=== PATIENT | male | born 1950 | race Caucasian/White ===

== ENCOUNTER 2020-07-01 16:05 | Emergency (ER) | payer OTHER ==
[2020-07-01 16:11] VITALS: Ht 175.3 cm
[2020-07-01] MEDS ORDERED: VIBRAMYCIN 100100 MG (16:12)
[2020-07-01] MEDS ORDERED: ELIQUIS5 MG (16:12)
[2020-07-01] MEDS ORDERED: LIPITOR80 MG (16:12)
[2020-07-01] MEDS ORDERED: OPTIVE SENSITI1 EACH (16:12)
[2020-07-01] MEDS ORDERED: NEURONTIN 300300 MG (16:13)
[2020-07-01] MEDS ORDERED: PROTONIX40 MG (16:13)
[2020-07-01] MEDS ORDERED: PLENDIL5 MG (16:13)
[2020-07-01] MEDS ORDERED: BAYER CHEWABLE81 MG (16:13)
[2020-07-01] MEDS ORDERED: LOPRESSOR25 MG (16:13)
[2020-07-01] MEDS ORDERED: LASIX40 MG (16:13)
[2020-07-01] MEDS ORDERED: ISOSORBIDE MONO30 M1 (16:13)
[2020-07-01 18:16] LABS: BASOPHILS 0.3 % (0-2); EOSINOPHILS 3.1 % (0-7); HEMATOCRIT 40.7 % (42.0-54.0); HEMOGLOBIN 13.6 g/dL (13.5-17.5); IMMATURE GRANULOCYTES 0.2 % (0-5); LYMPHOCYTES 25.2 % (15-50); MCH 29.3 pg (26.0-34.0); MCHC 33.4 g/dL (31.0-37.0); MCV 87.7 fL (80.0-100.0); MEAN PLATELET VOLUME 9.8 fL (7.4-10.4); NEUTROPHILS 59.2 % (40-80); PLATELET COUNT 267 10x3/uL (130-400); RBC 4.64 10x6/uL (4.20-6.10); RDW 13.8 % (11.5-14.5); WBC 9.6 10x3/uL (4.8-10.8)
[2020-07-01 18:27] LABS: APTT 32.6 SECONDS (22.8-39.4); INR 1.12 (0.85-1.17); PROTIME 14.4 SECONDS (11.6-15.0)
[2020-07-01 18:29] LABS: ANION GAP 10.7 mmol/L (8-16); CALCIUM 8.8 mg/dL (8.5-10.1); CARBON DIOXIDE 26.1 mmol/L (21.0-32.0); CREATININE - SERUM 1.7 mg/dL (0.6-1.3); POTASSIUM - SERUM 3.8 mmol/L (3.5-5.1)
[2020-07-01 18:43] LABS: ALBUMIN 3.8 g/dL (3.4-5.0); BILIRUBIN - TOTAL 0.39 mg/dL (0.2-1.3); PROTEIN - SERUM 8.3 g/dL (6.4-8.2)
[2020-07-01 20:20] VITALS: BP 162/74
== END 2020-07-01 20:20 | disposition other institution (70) ==
LOC: D.ER 16:05
PROVIDERS: Family Medicine
DX: S61.442A Puncture wound with foreign body of left hand, initial encounter (principal); W22.8XXA Striking against or struck by other objects, initial encounter; Y93.9 Activity, unspecified; Y92.9 Unspecified place or not applicable; I10 Essential (primary) hypertension; Z95.1 Presence of aortocoronary bypass graft

== ENCOUNTER 2020-12-11 20:37 | Inpatient (IN) | payer OTHER ==
[~2020-12-11] VITALS: Ht 175.3 cm; Wt 113.6 kg
[~2020-12-11 20:37] MED LIST: BAYER CHEWABLE81 MG; ELIQUIS5 MG; ISOSORBIDE MONO30 M1 PO; LASIX40 MG; LIPITOR80 MG PO; LOPRESSOR25 MG PO; NEURONTIN 300300 MG PO; OPTIVE SENSITI1 EACH OP; PACERONE100 MG PO; PLENDIL5 MG; PROCARDIA XL60 MG PO; PROTONIX40 MG PO; VIBRAMYCIN 100100 MG
[2020-12-11 21:03] LABS: CALCIUM 8.3 mg/dL (8.5-10.1); CREATININE - SERUM 1.3 mg/dL (0.6-1.3); INR 1.13 (0.85-1.17); PROTIME 13.4 SECONDS (11.6-15.0)
[2020-12-11 21:10] VITALS: BP 167/84
[2020-12-11 21:24] LABS: ALBUMIN 3.3 g/dL (3.4-5.0); BASOPHILS 0.2 % (0-2); BILIRUBIN - TOTAL 0.44 mg/dL (0.2-1.3); C-REACTIVE PROTEIN 2.2 mg/dL (0.0-0.9); EOSINOPHILS 1.2 % (0-7); HEMATOCRIT 41.3 % (42.0-54.0); HEMOGLOBIN 13.4 g/dL (13.5-17.5); IMMATURE GRANULOCYTES 0.2 % (0-5); LYMPHOCYTE ABS# 1.64 10x3/uL (1.32-3.57); LYMPHOCYTES 13.3 % (15-50); MAGNESIUM - SERUM 1.8 mg/dL (1.8-2.4); MCH 28.2 pg (26.0-34.0); MCHC 32.4 g/dL (31.0-37.0); MCV 86.8 fL (80.0-100.0); MEAN PLATELET VOLUME 9.8 fL (7.4-10.4); MONOCYTES 11.2 % (2-11); NEUTROPHIL ABS# 9.07 10x3/uL (1.78-5.38); NEUTROPHILS 73.9 % (40-80); PLATELET COUNT 279 10x3/uL (130-400); PROTEIN - SERUM 7.8 g/dL (6.4-8.2); RBC 4.76 10x6/uL (4.20-6.10); WBC 12.3 10x3/uL (4.8-10.8)
[2020-12-11 21:41] LABS: TROPONIN-I 4.989 ng/mL (0.000-0.060)
[2020-12-11 22:24] VITALS: BP 142/80
[2020-12-11 23:58] VITALS: BP 149/68
[2020-12-12] VITALS (9 sets, daily range): BP systolic 116–151; BP diastolic 59–76
--- NOTE | 2020-12-12 12:10 | NUR ---
PATIENT UP AMBULATORY IN ROOM.
[2020-12-12 19:00] LABS: BILIRUBIN NEGATIVE (NEGATIVE); KETONE NEGATIVE (NEGATIVE); NITRITE NEGATIVE (NEGATIVE); UROBILINOGEN NORMAL mg/dL (< 2); WHITE CELLS - URINE 0-5 HPF (0-1)
[2020-12-12 19:01] LABS: BACTERIA FEW HPF (NONE SEEN)
[2020-12-13] VITALS (11 sets, daily range): BP systolic 148–190; BP diastolic 66–89; Ht 175.3 cm; Wt 113.6 kg
--- NOTE | 2020-12-13 07:34 | NUR ---
ALERT/ORIENTED X 3 SITTING ON SIDE OF BED. B/P 156/68 HR 93 O2 SATS 97% IV L AC 18GAUGE NO COMPLAINTS
--- NOTE | 2020-12-13 22:10 | NUR ---
PT FROM ER VIA WHEELCHAIR, PT AMBULATED TO BED, RESP EVEN AND UNLABORED, NO DISTRESS NOTED, CL IN REACH, SR UP X 2.
[2020-12-13] MEDS ORDERED: LASIX40 MG PO (22:30)
[2020-12-14 05:26] VITALS: BP 155/62
[2020-12-14 05:33] LABS: BASOPHILS 0.1 % (0-2); EOSINOPHILS 1.9 % (0-7); HEMATOCRIT 33.5 % (42.0-54.0); IMMATURE GRANULOCYTES 0.2 % (0-5); LYMPHOCYTE ABS# 1.39 10x3/uL (1.32-3.57); LYMPHOCYTES 14.2 % (15-50); MCH 28.3 pg (26.0-34.0); MCHC 32.8 g/dL (31.0-37.0); MCV 86.1 fL (80.0-100.0); MEAN PLATELET VOLUME 9.7 fL (7.4-10.4); MONOCYTES 13.3 % (2-11); NEUTROPHILS 70.3 % (40-80); RBC 3.89 10x6/uL (4.20-6.10); RDW 14.1 % (11.5-14.5); WBC 9.8 10x3/uL (4.8-10.8)
[2020-12-14 06:00] LABS: ALBUMIN 2.7 g/dL (3.4-5.0); ANION GAP 11.3 mmol/L (8-16); BILIRUBIN - TOTAL 0.44 mg/dL (0.2-1.3); CALCIUM 8.2 mg/dL (8.5-10.1); CREATININE - SERUM 1.3 mg/dL (0.6-1.3); POTASSIUM - SERUM 3.3 mmol/L (3.5-5.1); PROTEIN - SERUM 6.9 g/dL (6.4-8.2)
[2020-12-14 06:10] LABS: PLATELET COUNT 223 10x3/uL (130-400)
--- NOTE | 2020-12-14 07:30 | NUR ---
SITTING ON SIDE OF BED, AWAKE/ALERT/ORIENTED, T/R SELF AD FACUNDO, CONT OF B/B WITH BRPs PER SELF AD FACUNDO, DENIES PAIN/OTHER DISCOMFORT AT THIS TIME, CALL LIGHT/PHONE/WATER WITHIN REACH, NO S/S OF ACUTE DISTRESS OBSERVED.
[2020-12-14 07:54] VITALS: BP 126/76
--- NOTE | 2020-12-14 09:45 | NUR ---
COLLECTED SPECIMEN FOR COVID ANTIGEN TEST
--- NOTE | 2020-12-14 10:00 | NUR ---
COLLECTED SPECIMEN FOR COVID PCR TEST
--- NOTE | 2020-12-14 10:02 | NUR ---
TRANSFERRED TO ROOM 2106 WHILE AWAITING RESULTS OF COVID TESTS
[2020-12-14 10:20] LABS: SARS-CoV-2 ANTIGEN NEGATIVE- SARS-COV-2 (NEGATIVE)
[2020-12-14 12:00] VITALS: BP 126/70; BP 171/78
--- NOTE | 2020-12-14 20:00 | NUR ---
INITIAL ROUNDS AND ASSESSMENT COMPLETED. PT RESTING IN BED. ALERT/ORIENTED. SR PER TELEMETRY. NONLABORED RESPIRATIONS WITH O2 @ 6L/HFNC. IV TO LEFT A/C SALINE LOCKED. CALL LIGHT IN REACH.
[2020-12-14 20:30] VITALS: BP 176/72
[2020-12-14] MEDS ORDERED: PACERONE200 MG PO (20:50)
[2020-12-15 00:30] VITALS: BP 166/75
--- NOTE | 2020-12-15 04:33 | NUR ---
PT HAS RESTED THROUGH THE NIGHT. NO CHANGE FROM INITIAL SHIFT ASSESSMENT. SR PER TELEMETRY. NO REPORTS OF PAIN OR DISCOMFORT. PATENT IV TO LEFT A/C SALINE LOCKED. O2 @ 3L/NC WITH RT WORKING ON WEANING. CPOC. CALL LIGHT IN REACH.
[2020-12-15 05:28] VITALS: BP 138/67
[2020-12-15 06:50] LABS: BASOPHILS 0.4 % (0-2); EOSINOPHILS 4.1 % (0-7); HEMOGLOBIN 10.7 g/dL (13.5-17.5); IMMATURE GRANULOCYTES 0.1 % (0-5); LYMPHOCYTE ABS# 1.58 10x3/uL (1.32-3.57); LYMPHOCYTES 20.1 % (15-50); MCH 27.9 pg (26.0-34.0); MCHC 32.4 g/dL (31.0-37.0); MCV 85.9 fL (80.0-100.0); MEAN PLATELET VOLUME 9.6 fL (7.4-10.4); MONOCYTES 14.4 % (2-11); NEUTROPHIL ABS# 4.79 10x3/uL (1.78-5.38); NEUTROPHILS 60.9 % (40-80); PLATELET COUNT 249 10x3/uL (130-400); RBC 3.84 10x6/uL (4.20-6.10); RDW 14.1 % (11.5-14.5); WBC 7.9 10x3/uL (4.8-10.8)
[2020-12-15 07:00] VITALS: BP 134/67
[2020-12-15 08:18] LABS: ALBUMIN 2.7 g/dL (3.4-5.0); BILIRUBIN - TOTAL 0.41 mg/dL (0.2-1.3); CALCIUM 8.4 mg/dL (8.5-10.1); CARBON DIOXIDE 24.6 mmol/L (21.0-32.0); CREATININE - SERUM 1.2 mg/dL (0.6-1.3); PROTEIN - SERUM 6.2 g/dL (6.4-8.2)
[2020-12-15 08:28] LABS: ANION GAP 14.2 mmol/L (8-16); POTASSIUM - SERUM 3.8 mmol/L (3.5-5.1)
[2020-12-15 12:00] VITALS: BP 130/69
[2020-12-15 15:00] VITALS: BP 139/64
[2020-12-15 20:00] VITALS: BP 146/61
[2020-12-16] VITALS: BP 133/60
[2020-12-16 06:37] LABS: BASOPHILS 0.4 % (0-2); EOSINOPHILS 5.6 % (0-7); HEMATOCRIT 35.2 % (42.0-54.0); HEMOGLOBIN 11.6 g/dL (13.5-17.5); IMMATURE GRANULOCYTES 0.1 % (0-5); LYMPHOCYTE ABS# 1.69 10x3/uL (1.32-3.57); LYMPHOCYTES 23.2 % (15-50); MEAN PLATELET VOLUME 9.6 fL (7.4-10.4); MONOCYTES 17.9 % (2-11); NEUTROPHIL ABS# 3.83 10x3/uL (1.78-5.38); NEUTROPHILS 52.8 % (40-80); PLATELET COUNT 262 10x3/uL (130-400); RBC 4.14 10x6/uL (4.20-6.10); RDW 13.9 % (11.5-14.5); WBC 7.3 10x3/uL (4.8-10.8)
[2020-12-16 07:15] VITALS: BP 130/57
[2020-12-16 07:22] LABS: ALBUMIN 2.6 g/dL (3.4-5.0); ANION GAP 12.3 mmol/L (8-16); BILIRUBIN - TOTAL 0.37 mg/dL (0.2-1.3); CALCIUM 8.9 mg/dL (8.5-10.1); CARBON DIOXIDE 25.5 mmol/L (21.0-32.0); CREATININE - SERUM 1.2 mg/dL (0.6-1.3); MAGNESIUM - SERUM 2.2 mg/dL (1.8-2.4); POTASSIUM - SERUM 3.8 mmol/L (3.5-5.1); PROTEIN - SERUM 7.1 g/dL (6.4-8.2)
[2020-12-16 08:16] VITALS: BP 129/60
--- NOTE | 2020-12-16 10:37 | MORECARE ---
"CASE MANAGEMENT DISCHARGE SUMMARY PATIENT: LEESA MARTÍNEZ UNIT: [id number] ADM DATE: 12/12/20 AGE: 70 : 50 SEX: M ROOM/BED: D.2106 AUTHOR: CHER RODRIGUEZ PHYSICIAN: REFERRING PHYSICIAN: LEONIE COFFEY DO DATE OF SERVICE: 12/16/20 Discharge Plan Patient Name: LEESA MARTÍNEZ Facility: [facility]:[place] : 1950 Planned Disposition: Home Anticipated Discharge Date: 12/16/20 Discharge Date: Expected LOS: 4 Initial Reviewer: WILLIAMS Initial Review Date: 12/12/2020 Generated: 12/16/20 11:36 am Comments DCP- Discharge Planning Updated by WILLIAMS: Donovan Gray on 12/16/20 9:[address] CM met with patient to complete DC plan and to evaluate needs. Patient lives independently with his spouse, Janette Martínez ([phone]). At discharge, the patient plans to return home and feels this is a safe discharge. CM discussed availability of home health, rehab services, and medical equipment. Patient declined HHS, SNF, IPR, and DME. Patient voiced no other needs at this time and is satisfied with DC plan. Transportation provider at discharge will be with Janette. DC IMM delivered, explained, signed by the patient, and placed in chart. Signed form also left with the patient. CM will continue to follow and will assist as needed with dc plans/needs. DCPIA - Discharge Planning Initial Assessment Updated by WILLIAMS: Donovan Gray on 12/16/20 10:34 am * Is the patient Alert and Oriented? Yes * How many steps to enter\\exit or inside your home? 4/0 * [facility] * Preadmission Environment Home with Family * ADLs Independent * Equipment None * Other Equipment n/a * List name and contact numbers for known caregivers / representatives who currently or will assist patient after discharge: spouse, Janette Martínez ([phone]) * Verbal permission to speak to the caregivers and representatives has been obtained from the patient. Yes * Community resources currently utilized None * Please name any agencies selected above. n/a * Additional services required to return to the preadmission environment? No * Can the patient safely return to the preadmission environment? Yes * Has this patient been hospitalized within the prior 30 days at any hospital? No Coverage Notice Reviewer: [id number] Kayleigh Gray Notice Issued Date-Time: 12/16/2020 10:10 Notice Type: IM Discharge Notice Notice Delivered To: Patient Relationship to Patient: Self Receiving Operator Name: Delivery Method: HAND - Hand Delivered Daphne Days: Prior Verbal Notification: Recipient Understood Notice: Yes Recipient Signature: Yes Med Rec Note Co-signed by Attending: Coverage Notice Comment: DC IMM delivered, explained, signed by the patient, and placed in chart. Patient Name: LEESA MARTÍNEZ Page [phone] at 1037 All edits/amendments must be made on the electronic document DICTATION DATE: 12/16/20 1037 WARP KNITTING MACHINE OPERATOR: TENISHA 12/16/20 [facility] RPT#: [id number] DC DATE: STATUS: ADM IN [facility] [address] [place] [address] END OF REPORT"
--- NOTE | 2020-12-16 11:13 | NUR ---
PT AWAKE AND ORIETNED, SITTING UP ON STEWART OF BED EATING BREAFKAST. NO COMPLAINTS OR COCNERNS THIS AM. WOULD LIKE TO DISCHARGE, DISCHARGE ORDER ALREADY PLACED AND PAPERWORK COMPLETED, PT WILL BE HERE SHORLTY TO GET HIM. IV OUT TIP INTACT. TOOK ALL MEDICATIONS WITHOUT COMPLICATIONS. CL IRN EACH, SRX2,.
--- NOTE | 2020-12-16 11:32 | NUR ---
PT ESCORTED OUT VIA HWEELCHAIR TO POV, DRIVING.
--- NOTE | 2020-12-17 07:38 | MORECARE ---
"CASE MANAGEMENT DISCHARGE SUMMARY PATIENT: LEESA MARTÍNEZ UNIT: [id number] ADM DATE: 12/12/20 AGE: 70 : 50 SEX: M ROOM/BED: D.2106 AUTHOR: MICHAEL,DOC PHYSICIAN: REFERRING PHYSICIAN: LEONIE COFFEY DO DATE OF SERVICE: 12/17/20 Discharge Plan Patient Name: LEESA MARTÍNEZ Facility: [facility]:[place] : 1950 Planned Disposition: Home Anticipated Discharge Date: 12/16/20 Discharge Date: 12/16/2020 Expected LOS: 4 Initial Reviewer: WILLIAMS Initial Review Date: 12/12/2020 Generated: 12/17/20 8:37 am Comments DCP- Discharge Planning Updated by [id number]: Donovan Gray on 12/16/20 9:[address] CM met with patient to complete DC plan and to evaluate needs. Patient lives independently with his spouse, Janette Martínez ([phone]). At discharge, the patient plans to return home and feels this is a safe discharge. CM discussed availability of home health, rehab services, and medical equipment. Patient declined HHS, SNF, IPR, and DME. Patient voiced no other needs at this time and is satisfied with DC plan. Transportation provider at discharge will be with Janette. DC IMM delivered, explained, signed by the patient, and placed in chart. Signed form also left with the patient. CM will continue to follow and will assist as needed with dc plans/needs. DCPIA - Discharge Planning Initial Assessment Updated by [id number]: Donovan Gray on 12/16/20 10:34 am * Is the patient Alert and Oriented? Yes * How many steps to enter\\exit or inside your home? 4/0 * [facility] * [facility] * Preadmission Environment Home with Family * ADLs Independent * Equipment None * Other Equipment n/a * List name and contact numbers for known caregivers / representatives who currently or will assist patient after discharge: spouse, Janette Martínez ([phone]) * Verbal permission to speak to the caregivers and representatives has been obtained from the patient. Yes * Community resources currently utilized None * Please name any agencies selected above. n/a * Additional services required to return to the preadmission environment? No * Can the patient safely return to the preadmission environment? Yes * Has this patient been hospitalized within the prior 30 days at any hospital? No Coverage Notice Reviewer: [id number] Kayleigh BenavidesDonovanaishwarya Chaviranes Notice Issued Date-Time: 12/16/2020 10:10 Notice Type: IM Discharge Notice Notice Delivered To: Patient Relationship to Patient: Self Janitorial Assistant Name: Delivery Method: HAND - Hand Delivered Daphne Days: Prior Verbal Notification: Recipient Understood Notice: Yes Recipient Signature: Yes Med Rec Note Co-signed by Attending: Coverage Notice Comment: DC IMM delivered, explained, signed by the patient, and placed in chart. Last DP export: 12/16/20 9:37 a Patient Name: LEESA MARTÍNEZ Page [phone] at 0738 All edits/amendments must be made on the electronic document DICTATION DATE: 12/17/20736 GRANITE CUTTER: TENISHA 12/17/2037 RPT#: [id number] DC DATE:12/16/20 STATUS: DIS IN [facility] [address] [place] [address] END OF REPORT"
--- NOTE | 2020-12-17 08:49 | EC ---
PATIENT:LEESA DU DATE OF SERVICE: 12/12/20 SEX: M MEDICAL RECORD: [id number] DATE OF : [birth year] LOCATION:D.M2 D.210 AGE OF PATIENT: 70 ADMISSION DATE: 12/12/20 REFERRING PHYSICIAN: INTERPRETING PHYSICIAN: MARLYN TALLEY MD ECHOCARDIOGRAM REPORT ECHO CHARGES 4 ECHO COMPLETE Date: 12/12/20 CLINICAL DIAGNOSIS: R/O PERICARDIAL EFFUSION ECHOCARDIOGRAPHIC MEASUREMENTS (adult normal given) AC root (d.<3.7cm) 3.5 cm LV Septum d (<1.2 cm> 0.9 cm Valve Excursion 1.9 cm LV Septum (systole) 1.4 cm Left Atria (s.<4.0cm> 4.7 cm LVPW d(<1.2cm) 1.2 cm RV (d.<2.3cm) 3.1 cm LVPW (sytole) 1.6 cm LV diastole(<5.6CM) 5.9 cm MV E-F(>70mm/sec) cm LV systole 4.9 cm LVOT Diameter 2.0 cm MV exc.(>10mm) 2.1 cm Est.ejection fraction (50-75%) % DOPPLER: LVIT cm/sec A 48 cm/sec E 79 cm/sec LA cm/sec RVSP 22 mmHg LVOT 79 cm/sec AOP1/2T m/s Asc. Ao 112 cm/sec RVOT 82 cm/sec RA 109 cm/sec PA cm/sec AV Gradient Peak 5.0 mmHg AV Mean 2.8 mmHg AV Area 1.8 cm MV Gradient Peak 3.7 mmHg MV Mean 1.6 mmHg MV Area cm COMMENTS: Line Department Supervisor: Lucrecia GRAF Creative Services Writer: 3 Dr. Jones TAPE# Pericardial Effusion N DATE OF SERVICE: Adequate 2D, color flow imaging, spectral Doppler, and M-Mode. No LVH. LV internal dimensions are normal. Wall motion normal. EF greater than or equal to 55%. Aortic valve is tricuspid. No evidence of stenosis by Doppler interrogation. Left atrium is dilated at 4.7 cm. Mitral valve shows no prolapse. Trace MR. Right-sided chambers are grossly normal. Trace TR. No evidence of pericardial effusion is noted. ECHOCARDIOGRAM REPORT [id number] LEESA DU TRANSINT:[id number] Voice Confirmation ID: [id number] DOCUMENT ID: [id number] MARLYN TALLEY MD at 0849 CC: [id number] DICTATION DATE: 12/12/20 162 TURBO GENERATOR OILER: 12/13/20 0043 DIS IN 12/16/20 [place] [id number] [place] [id number]
--- NOTE | 2020-12-17 08:49 | CN ---
PATIENT NAME:LEESA DU MEDICAL RECORD: [id number] : 50 LOCATION:D. D.2106 ADMIT DATE: 12/12/20 ACCOUNT: [id number] CONSULTING PHYSICIAN: MARLYN TALLEY MD REFERRING PHYSICIAN: LEONIE COFFEY DO DATE OF CONSULTATION: 12/12/2020 HISTORY OF PRESENT ILLNESS: A 70-year-old gentleman with a known history of coronary artery disease, status post coronary artery bypass grafting, hypertension, hyperlipidemia and underwent AFib ablation yesterday and presented the evening of admission with fever, chills, shortness of breath, chest pain, temperature 101.5. Chest x-ray and CT showed possible pneumonitis. Rhythm is currently intermittently atrial fibrillation. Remains on amiodarone, noted to have elevated cardiac enzymes, these are trending down at this point. Chest pain is fairly classically pleuritic at this point, worse with deep inspiration. We are asked to see him concerning cardiovascular status. PAST MEDICAL HISTORY: Includes; 1. History of hypertension. 2. Coronary artery disease as described above. 3. Atrial fibrillation. 4. Dyslipidemia. 5. Gastroesophageal reflux disease. ALLERGIES: PEANUTS. MEDICATIONS: Include Eliquis 5 mg b.i.d., amiodarone 100 mg every day, Lipitor 80 every day, isosorbide 30 mg p.o. every day, metoprolol 25 b.i.d., nifedipine 30 mg p.o. every day, aspirin 81 every day, Neurontin 300 b.i.d. SOCIAL HISTORY: Nonsmoker, nondrinker. Typically, easily takes care of all his ADLs. REVIEW OF SYSTEMS: The patient reports easy bruising but reports no swollen glands. The patient reports no fever, no night sweats, no significant weight gain, no significant weight loss. No significant exercise tolerance. The patient reports no dry eyes, no irritation, no vision change. Patient reports no difficulty hearing and no ear pain. Patient reports no frequent nose bleeds or nose and sinus problems. Patient reports on arm pain on exertion. No shortness of breath while lying down. No history of heart murmur. Patient reports no cough, no wheezing or coughing up blood. Patient reports no abdominal pain, no vomiting. Normal appetite. No diarrhea and not vomiting blood. No nausea and no constipation. Patient reports no incontinence. No difficulty urinating. No hematuria. No increased frequency. Patient reports no muscle aches. No weakness, no arthralgias, no back pain. No swelling of the extremities. Patient reports no abnormal mole, no jaundice, no rashes. Reports no loss of consciousness. No weakness and no numbness. No seizures, dizziness, or headaches. The patient reports no depression, no sleep disturbance, feeling safe in a relationship and no alcohol abuse. Patient reports on fatigue. Reports no runny nose or sinus pressure. No itching, no hives, and no frequent sneezing. PHYSICAL EXAMINATION: GENERAL: No acute distress, appears stated age. VITAL SIGNS: Blood pressure 119/68, pulse 77 irregular. CONSULT REPORT [id number] LEESA DU HEENT: Normocephalic, atraumatic. NECK: No JVD or bruit. CARDIOVASCULAR: Heart is regular, rate is controlled. There is a II/ systolic ejection murmur. LUNGS: Diminished breath sounds in both bases. ABDOMEN: Soft, nontender. EXTREMITIES: Pulses are well preserved, 2+. No edema. DIAGNOSTIC DATA: EKG shows no ischemic changes. IMPRESSION AND PLAN: Chest pain appears more pleuritic, may be related to underlying current infectious process. Would not be surprised to see atrial fibrillation, particularly with underlying infection and increased catecholamine drive, etc. Rates are well controlled at this point. Cardiac enzymes were trending down as I would expect with post-ablation. We will add colchicine for pleuritic pain. Further recommendations based on clinical course. TRANSINT:[id number] Voice Confirmation ID: [id number] DOCUMENT ID: [id number] MARLYN TALLEY MD at 0849 CC: [id number] DICTATION DATE: 12/12/20 0955 SNOWMOBILE MECHANIC: 12/12/20 1054 DIS IN 12/16/20 [place] [id number] [place] [address]
== END 2020-12-16 11:32 | disposition home or self-care (01) | DRG 195 ==
LOC: D.ER 20:37 → OBSVTIME 12-12 01:23 → D.EDHOLD 12-12 01:23 → D.M2 12-12 17:27 → D.EDHOLD 12-12 17:27 → D.M2 12-13 21:07
PROVIDERS: Family Medicine; ADMIT Family Medicine; ATTEND Family Medicine
DX: J18.9 Pneumonia, unspecified organism (principal); I48.91 Unspecified atrial fibrillation; I10 Essential (primary) hypertension; I25.10 Atherosclerotic heart disease of native coronary artery without angina pectoris; D64.9 Anemia, unspecified; E78.5 Hyperlipidemia, unspecified; K21.9 Gastro-esophageal reflux disease without esophagitis; Z86.711 Personal history of pulmonary embolism